=== PATIENT | male | born 1990 | race Two or more races ===

== ENCOUNTER 2017-01-11 12:55 | Emergency (ER) | payer OTHER ==
[~2017-01-11] VITALS: Ht 177.8 cm; Wt 86.2 kg
[2017-01-11] MEDS ORDERED: NKM (13:12)
--- NOTE | 2017-01-11 13:18 | Emergency Room Report ---
History of Present Illness General Chief Complaint: Laceration Source: Patient Present Illness HPI The patient is a 26 all male presenting for laceration to the right middle finger. The patient states that he was at work, carrying a box with a staple sticking out he sustained a laceration. Patient noticed immediate pain and bleeding to the area. Pain is described as a 3/10 dull ache to the area. Pain does not radiate. The patient immediately cleaned the wound with water and apply pressure. Patient states last tetanus shot was 3 years prior. Patient denies any other injury. The patient denies numbness, tingling, fever, chills Allergies: Coded Allergies: No Known Allergies (Unverified , 01/11/17) Patient History Past Medical History: see triage record Pertinent Family History: none Reviewed Nursing Documentation: PMH: Agreed, PSxH: Agreed Review of Systems All Other Systems: negative except mentioned in HPI Physical Exam Vital Signs Date Time Temp Pulse Resp B/P Pulse Ox O2 Delivery O2 Flow Rate FiO2 01/11/17 13:07 98.2 84 16 114/79 99 Room Air Sp02 EP Interpretation: reviewed, normal General Appearance: no apparent distress, alert, GCS 15, non-toxic Head: normocephalic, atraumatic Eyes: bilateral eye PERRL, bilateral eye normal inspection ENT: hearing grossly normal, normal pharynx, no angioedema, normal voice Musculoskeletal: back normal, normal range of motion, tender - TTP over distal R 3rd digit Neurologic: alert, oriented x3, responsive, motor strength/tone normal, sensory intact, speech normal Psychiatric: judgement/insight normal, memory normal, mood/affect normal, no suicidal/homicidal ideation Skin: laceration - 2cm linear laceration to distal R 3rd digit palmar surface Lymphatic: no adenopathy Procedures Laceration/Wound Repair Laceration/Wound Repair : Consent: Verbal Wound Location: upper extremity Wound's Depth, Shape: superficial, linear Wound Length (cm): 2 Wound Explored: clean Irrigated w/ Saline (ccs): 100 Betadine Prep?: Yes Anesthesia: 1% Lidocaine Volume Anesthetic (ccs): 5 Wound Debrided: minimal Wound Repaired With: sutures Suture Size/Type: 5:0, proline Number of Sutures: 3 Layer Closure?: No Sterile Dressing Applied?: Yes Splint Applied?: Yes Type of Splint Applied: metal finger Sling Applied?: No Patient Tolerated: Well Complications: None Medical Decision Making PA Attestation Dr. Triana is my supervising physician. Patient management was discussed with my supervising physician Diagnostic Impression: Primary Impression: Finger laceration ER Course The patient is a 26 all male presenting for laceration to the right middle finger. Ddx considered include but not limited to fracture, tendon/ligament injury, avulsion, nerve damage Physical exam: Vitals are within normal limits. Right hand: There is a 2 cm linear laceration to the distal palmar surface of the third digit. No active bleeding. Sensation intact to light touch. Full active range of motion The wound was irrigated with normal saline and cleaned with betadine. A 27g needle was used to administer 5mL of lidocaine w.o epi for digital block. 3 sutures were placed with 5-0 prolene. The wound was well approximated and the patient tolerated the procedure well. The wound was then cleaned and bacitracin was applied. A metal finger splint was applied The patient will continue to keep the wound clean and dry and will followup with PMD and workers compensation. Suture instructions provided. ER precautions are given Last Vital Signs Date Time Temp Pulse Resp B/P Pulse Ox O2 Delivery O2 Flow Rate FiO2 01/11/17 13:07 98.2 84 16 114/79 99 Room Air Status: improved Disposition: HOME, SELF-CARE Condition: Improved Scripts Ibuprofen* (MOTRIN*) 600 Mg Tablet 600 MG ORAL Q8H Y for For Pain, #30 TAB 0 Refills Prov: RAKESH CARDONA 01/11/17 RAKESH CARDONA Jan 11, 2017 13:18
[2017-01-11 13:21] VITALS: BP 114/79
[2017-01-11] MEDS ORDERED: Bacitracin Oint UD TOPIC ONE (13:30)
[2017-01-11] MEDS ORDERED: Lidocaine 1% MPF 10mg/ml 5ml INJ ONE (13:30)
[2017-01-11] MEDS ORDERED: IBUPROFEN600 MG ORAL (14:04)
[2017-01-11 14:20] VITALS: BP 109/70
[2017-01-11 14:23] VITALS: BP 109/70
== END 2017-01-11 14:23 | disposition home or self-care (01) ==
LOC: EMR 13:40
DX: S61.212A Laceration without foreign body of right middle finger without damage to nail, initial encounter (principal); W45.8XXA Other foreign body or object entering through skin, initial encounter; Y92.69 Other specified industrial and construction area as the place of occurrence of the external cause; Y99.0 Civilian activity done for income or pay
CPT/HCPCS: 29280

== ENCOUNTER 2018-11-21 13:06 | Emergency (ER) | payer OTHER ==
[~2018-11-21] VITALS: Ht 175.3 cm; Wt 88.5 kg
[~2018-11-21 13:06] MED LIST: IBUPROFEN600 MG ORAL; NKM
--- NOTE | 2018-11-21 13:25 | NUR ---
ED Nurse Note: pt walked in to ED due to injured on right big toe at work today. per pt, heavy metal dropped to toes. crack on nail noted. dried blood noted around the nail. pt able to walked with steady gait. dressing done by nurse at job site. AAO x4. respirations even and non-labored noted. will wait for the further order.
[2018-11-21] MEDS ORDERED: Tetanus/Diptheria/Pertussis Vaccine 0.5ml Syr IM ONE (13:45)
[2018-11-21] MEDS ORDERED: Bacitracin Oint UD TOPIC ONE (13:45)
--- NOTE | 2018-11-21 13:45 | Emergency Room Report ---
History of Present Illness General Chief Complaint: Lower Extremity Injury Source: Patient Present Illness HPI 28-year-old male patient presents the ER status post injury earlier today at work. Patient states that a piece of metal fell onto his right big toe. Reports pain with ambulation if he places weight on the toe however states he is able to walk normally otherwise. Reports the nail "broke". Reports bleeding at that time, states well controlled. Reports saline lavage performed at his work. States is not taking medication for relief of symptoms. Denies history of diabetes. Reports he was wearing a shoe when a piece of metal fell on his foot. Reports is not up-to-date on his tetanus vaccinations. Denies fever, chest pain, shortness of breath. Denies other aggravating or relieving factors. Allergies: Coded Allergies: No Known Allergies (Unverified , 01/11/17) Patient History Past Medical History: see triage record Reviewed Nursing Documentation: PMH: Agreed; PSxH: Agreed Nursing Documentation-PMH Past Medical History: No History, Except For Review of Systems All Other Systems: negative except mentioned in HPI Physical Exam Vital Signs Date Time Temp Pulse Resp B/P (MAP) Pulse Ox O2 Delivery O2 Flow Rate FiO2 11/21/18 13:17 98.4 87 20 125/85 99 Room Air Sp02 EP Interpretation: reviewed, normal General Appearance: well appearing, no apparent distress, alert, GCS 15, non- toxic Head: normocephalic, atraumatic Eyes: bilateral eye normal inspection, bilateral eye PERRL ENT: hearing grossly normal, normal pharynx, no angioedema, normal voice, uvula midline, moist mucus membranes Neck: full range of motion Respiratory: lungs clear, normal breath sounds, no rhonchi, no respiratory distress, no accessory muscle use, no wheezing, speaking full sentences Cardiovascular #1: regular rate, rhythm, no edema Cardiovascular #2: 2+ dorsalis pedis (R), 2+ dorsalis pedis (L) Musculoskeletal: back normal, gait/station normal, normal range of motion, non- tender, other - 1 cm horizontal nondisplaced lacerationl in right foot big toenail extending laterally to tissue, cuticle intact, no active bleeding, no subungual hematoma, no surrounding erythema or edema, tender - Right foot big toenail Psychiatric: mood/affect normal Skin: no rash Medical Decision Making PA Attestation Dr. Triana is my supervising Physician whom patient management has been discussed with. Diagnostic Impression: Primary Impression: Injury of toenail of right foot ER Course Pt. presents to the ED c/o toe pain status post injury. Ddx considered but are not limited to fracture, contusion, avulsed toenail nail avulsion, cellulitis, subungual hematoma. Vital signs: are WNL, pt. is afebrile ER COURSE: Physical exam shows laceration on toenail, no subungual hematoma, does not require trephination. Will cover with abx to prevent infection, no signs of cellulitis. Possible nailbed trauma however will not remove nail at this time, will serve as natural splint, patient request not to have the nail removed. Advised patient follow-up with chief school finance officer to discuss nail removal. Discussed patient care with Dr. Triana, agrees with treatment plan. X-ray negative for fracture. Wound cleaned and dressed, bacitracin applied, placed in open toed shoe. Patient declined crutches. Completed workman's compensation paperwork. Informed patient can wash it tomorrow, but do not soak in water. Apply topical abx and redress wound. Followup with chief school finance officer/PCP in 2-3 days, provided with contact information for chief school finance officer, contact to schedule appt. Wound check in 2-3 days. ER precautions given. DISCHARGE: Rx provided for Keflex Rx provided for Bacitracin Rx provided for Motrin At this time pt is stable for d/c to home. Patient is resting comfortably, in no acute distress, nontoxic appearing, talking without difficulty. Patient to take medications as instructed Will provide with patient care instructions and any necessary prescriptions. Care plan and follow-up instructions provided. Patient instructed to follow-up with primary care provider in 3 - 5 days. Patient questions asked and answered. Patient reports understanding and agreement to treatment plan. ER precautions given. Patient instructed to return to ER immediately for any new or worsening of symptoms including but not limited to increasing SOB, persistent fever, chest pain, intractable vomiting. - Please note that this Emergency Department Report was dictated using [employer] operator technology software, occasionally this can lead to erroneous entry secondary to interpretation by the dictation equipment. Other X-Ray Diagnostic Results Other X-Ray Diagnostic Results : X-Ray ordered: right foot # of Views/Limited Vs Complete: 3 View Indication: Pain EP Interpretation: Yes PA Xray: Interpretation reviewed, by supervising MD, and agrees with findings. Interpretation: no dislocation, no soft tissue swelling, no fractures Impression: No acute disease ANT Scriburiel Text Austin Mcclelland PA-C Last Vital Signs Date Time Temp Pulse Resp B/P (MAP) Pulse Ox O2 Delivery O2 Flow Rate FiO2 11/21/18 13:17 98.4 87 20 125/85 99 Room Air Status: improved Disposition: HOME, SELF-CARE Condition: Stable Scripts Cephalexin* (KEFLEX*) 500 Mg Capsule 500 MG ORAL EVERY 12 HOURS, #14 CAP 0 Refills Prov: Karson Mcclelland 11/21/18 Bacitracin/Polymyxin B Sulfate (BACITRACIN-POLYMYXIN OINTMENT) 28.35 Gm Oint...g. 1 APPLIC TP BID, #28 GM Prov: Karson Mcclelland 11/21/18 Ibuprofen* (MOTRIN*) 600 Mg Tablet 600 MG ORAL Q8H PRN for For Pain, #30 TAB 0 Refills Prov: Karson Mcclelland 11/21/18 Patient Instructions: Fingernail or Toenail Removal, Fingernail or Toenail Removal, Care After Additional Instructions: Followup with chief school finance officer in 2-3 days. Discussed toenail removal at that time. Follow-up with Workmen's Comp. physician. X-ray negative for fracture. Keep clean and dry. Take medications as directed. Patient questions asked and answered. ER precautions given, patient instructed to return to ER immediately for any new or worsening of symptoms. Karson Mcclelland Nov 21, 2018 13:45
--- NOTE | 2018-11-21 14:46 | Diagnostic Imaging Report ---
Indication: Foot Pain Comparison: None Findings: 3 views of the right foot were obtained. No acute fractures, malalignment, erosions or periostitis are identified. Soft tissues are unremarkable. Impression: No acute findings.
[2018-11-21] MEDS ORDERED: BACITRACIN-P28.35 GM TP (15:16)
[2018-11-21] MEDS ORDERED: IBUPROFEN600 MG ORAL (15:16)
[2018-11-21] MEDS ORDERED: CEPHALEXIN500 MG ORAL (15:16)
[2018-11-21 15:20] VITALS: BP 132/78
--- NOTE | 2018-11-21 15:20 | NUR ---
ED Nurse Note: ortho shoes provide for pt as ordered. Patient is being discharged from medical care with prescriptions. Awake, alert and oriented x3. ID band were removed. Patient ambulated out with all personal belongings with steady gait.
== END 2018-11-21 15:20 | disposition home or self-care (01) ==
LOC: EMR 15:05
DX: S91.211A Laceration without foreign body of right great toe with damage to nail, initial encounter (principal); W20.8XXA Other cause of strike by thrown, projected or falling object, initial encounter; Y92.531 Health care provider office as the place of occurrence of the external cause; Y99.0 Civilian activity done for income or pay; Z23 Encounter for immunization
CPT/HCPCS: 90471; 90715; 99283